=== PATIENT | female | born 1990 | race Caucasian/White ===

== ENCOUNTER 2021-08-31 16:15 | Inpatient (IN) | payer SELFPAY ==
[2021-08-30 18:02] VITALS: BP 125/81
[~2021-08-31] VITALS: Ht 170.2 cm; Wt 72.0 kg
[2021-08-31] MEDS ORDERED: ACETAMINOPHEN 325 MG TABLET. PO PRN (18:15)
[2021-08-31] MEDS: oxyCODONE/APAP 5/325 1 TAB TABLET PO PRN (18:37)
[2021-08-31] MEDS: MORPHINE SULFATE 2 MG/ML INJ. IVP PRN (18:38)
[2021-08-31] MEDS: VANCOMYCIN PER PHARMACY MC PRN (18:39)
--- NOTE | 2021-08-31 18:41 | NUR ---
Pharmacy Vancomycin Dosing Note S:Consulted to monitor and dose vancomycin started 08/31/21. O:KATHRYN ZAYAS is a 30 year old F with perineal, gluteal cellulitis Height: 5 feet, 7 inches Weight: 72.0 kg Dosing Weight: Actual Other Antibiotics: ROCEPHIN 1G IV Q24HRS LABS (08/31 @ [facility]): Last BUN: 12 Last Creatinine: 0.9 Creatinine Clearance: 105 mL/min Last WBC: 32.3 Last Procalcitonin: Tmax (past 24 hours): 98.7 Microbiology: A: Patient requires vancomycin for cellulitis, goal trough 10-20 mcg/ml. His SCr at [facility] was 0.9 with an eCrCl of 105 ml/min. Patient received vancomycin 1500 mg x 1 dose at [facility] today @ 1400. P: 1. Initiate Vancomycin 1000 mg IV q8h 2. Follow up Trough level on 09/01/21 at 1330 3. Pharmacy will continue to monitor, follow and adjust therapy as needed. [place] DALEY, [facility], 08/31/21 [id number]
[2021-08-31 19:00] VITALS: BP 116/69
[2021-08-31] MEDS: cefTRIAXone IV Push 1 GM VIAL. IVP SCH (19:34)
[2021-08-31] MEDS: VANCOMYCIN 1 GM in IV NORMAL SALINE 250ML 250 ML IV SCH ×2 (19:35→21:49)
--- NOTE | 2021-08-31 20:04 | HP ---
DATE OF SERVICE: 08/31/2021 ADMIT DATE: 08/31/2021 CHIEF COMPLAINT: Scrotal and buttock redness and pain. HISTORY OF PRESENT ILLNESS: The patient is a pleasant 30-year-old male who states he is on parole and is homeless. Basically presented to [facility] ER with a gluteal cellulitis with some weakness and pain. I discussed the case with ER physician. We have transferred the patient for IV antibiotic therapy in consultation with General Surgery. PAST MEDICAL HISTORY: 1. Drug abuse, although he states he has quit. 2. Tobacco abuse. ALLERGIES: None. FAMILY HISTORY: Hypertension. SOCIAL HISTORY: He is homeless. He is on parole, states he was incarcerated for drugs. He smokes, but no current drug use or drinking. MEDICATIONS: Reviewed. Please refer to the MRAD. REVIEW OF SYSTEMS: GENERAL: No history of weight change, weakness or fevers. SKIN: He complains of gluteal and scrotal pain and erythema. EYES: No blurred, double or loss of vision. NOSE AND THROAT: No history of nosebleeds, hoarseness or sore throat. HEART: No history of palpitations, chest pain or shortness of breath on exertion. LUNGS: Denies cough, hemoptysis, wheezing or shortness of breath. GASTROINTESTINAL: Denies changes in appetite, nausea, vomiting, diarrhea or constipation. GENITOURINARY: No history of frequency, urgency, hesitancy or nocturia. NEUROLOGIC: Denies history of numbness, tingling, tremor or weakness. PSYCHIATRIC: No history of panic, anxiety or depression. ENDOCRINE: No history of heat or cold intolerance, polyuria or polydipsia. EXTREMITIES: Denies muscle weakness, joint pain, pain on walking or stiffness. PHYSICAL EXAMINATION: VITALS: Within normal limits and are stable. GENERAL: No apparent distress. Alert and oriented. HEENT: Normal cephalic atraumatic, external auditory canals are patent EYES: Extraocular muscles are intact, pupils are equally round and reactive to light and accommodation MUSCULOSKELETAL: Well developed, well nourished, good range of motion ENDOCRINE: No thyromegaly was palpated LYMPHATICS: No cervical chain or axillary nodes were noted HEMATOPOIETIC: No bruising NECK: Supple, no JVD, no thyromegaly was noted. LUNGS: Clear to auscultation in all lung spear without rhonchi or wheezing. HEART: RRR, S1, S2 present. Peripheral pulses intact, no obvious murmurs were noted. ABDOMEN: Soft, nontender. Positive bowel sounds no organomegaly, normal bowel sounds. EXTREMITIES: Without any cyanosis, clubbing, or edema. Pedal pulses intact, Homans sign is negative. NEUROLOGIC: Normal speech, normal tone. A and O x 3, moves all extremities, no obvious focal deficits. PSYCHIATRIC: Normal affect, normal mood. Stable. SKIN: No ulcerations or rashes, good skin turgor, no jaundice. VASCULAR: Good capillary refill, neurovascular bundle appears to be intact. GENITOURINARY: He has scrotal erythema and he has some buttock erythema. ASSESSMENT AND PLAN: Buttock and gluteal cellulitis and scrotal cellulitis. The patient has been admitted. We will start IV antibiotics. Consult General Surgery to see if there is any abscess, we could drain. Home meds. Deep venous thrombosis prophylaxis. Full code. IV vancomycin, IV Rocephin, p.r.n. oxycodone, p.r.n. morphine for breakthrough pain. DARVIN DR: Tacho TID: [id number]
[2021-08-31] MEDS ORDERED: FLU VACC QUAD 21-22 (6MOS+) PF 0.5 ML SYRINGE. VAX IM ONE (21:00)
[2021-08-31] MEDS: LACTOBACILLUS RHAMNOSUS GG 1 CAPSULE. PO SCH (21:49)
[2021-08-31 23:00] VITALS: BP 103/54
[2021-09-01 03:00] VITALS: BP 105/68
[2021-09-01] MEDS: VANCOMYCIN 1 GM in IV NORMAL SALINE 250ML 250 ML IV SCH ×3 (05:20→21:50)
[2021-09-01 07:00] VITALS: BP 111/66
[2021-09-01] MEDS: oxyCODONE/APAP 5/325 1 TAB TABLET PO PRN ×4 (08:22→23:40)
[2021-09-01] MEDS: LACTOBACILLUS RHAMNOSUS GG 1 CAPSULE. PO SCH ×2 (08:23→21:07)
--- NOTE | 2021-09-01 10:33 | PDOC2 ---
CONSULT Date of Consult Date of Consult DATE: 09/01/21 TIME: 10:31 History of Present Illness Reason for Visit: 30 year old male presented to [facility] with pain and swelling in perineal and R gluteal region X 3-4 days. Denies trauma, no fever. Past Medical History Past Medical History denies Past Surgical History Past Surgical History denies Social History 1 pack per day ALCOHOL: rare Current Medications Current Medications Current Medications Acetaminophen (Tylenol) 650 mg PRN Q6HRS PRN PO MILD PAIN / TEMP > 100.3'F Last administered on 08/31/21at 18:37; Start 08/31/21 at 18:15 Ceftriaxone Sodium (Rocephin) 1 gm Q24H IVP Last administered on 08/31/21at 19:34; Start 08/31/21 at 21:00 Vancomycin HCl (Vanco Per Pharmacy) 1 each PRN DAILY PRN MC SEE COMMENTS Last administered on 08/31/21at 18:39; Start 09/01/21 at 08:00 Morphine Sulfate (Morphine Sulfate) 2 mg PRN Q2HR PRN IVP PAIN Last adminis tered on 08/31/21at 18:38; Start 08/31/21 at 18:15 Oxycodone/ Acetaminophen (Percocet 5/325) 1 tab PRN Q4HRS PRN PO PAIN Last ad ministered on 09/01/21at 08:22; Start 08/31/21 at 18:15 Influenza Virus Vaccine Quadrival (Flulaval Quad [id number] Syringe) 0.5 ml ONCE ONCE VAX IM ; Start 08/31/21 at 21:00; Stop 08/31/21 at 21:01; Status DC Vancomycin HCl 1 gm/Sodium Chloride 250 ml @ 250 mls/hr Q8H IV Last administered on 09/01/21at 05:20; Start 08/31/21 at 22:00 Vancomycin HCl (Vancomycin Trough Level) 1 each 1X ONCE MC ; Start 08/31/21 at 13:30; Stop 08/31/21 at 13:31; Status Cancel Lactobacillus Rhamnosus (Culturelle) 1 cap BID PO Last administered on 09/01/21at 08:23; Start 08/31/21 at 21:00 Vancomycin HCl (Vancomycin Trough Level) 1 each 1X ONCE MC ; Start 09/01/21 at 13:30; Stop 09/01/21 at 13:31 Allergies Allergies: Coded Allergies: No Known Drug Allergies (Unverified , 08/31/21) ROS General: No: Chills, Night Sweats, Fatigue, Malaise, Appetite, Other PSYCHOLOGICAL ROS: No: Anxiety, Behavioral Disorder, Concentration difficultie, Decreased libido, Depression, Disorientation, Hallucinations, Hostility, Irritablity, Memory difficulties, Mood Swings, Obsessive thoughts, Physical abuse, Sexual abuse, Sleep disturbances, Suicidal ideation, Other Eyes: No Blurry vision, No Decreased vision, No Double vision, No Dry eyes, No Excessive tearing, No Eye Pain, No Itchy Eyes, No Loss of vision, No Ph otophobia, No Scotomata, No Uses contacts, No Uses glasses, No Other ENDOCRINE: No: Breast Changes, Galactorrhea, Hair Pattern Changes, Hot Flashes, Malaise/lethargy, Mood Swings, Palpitations, Polydipsia/polyuria, Skin Changes, Temperature Intolerance, Unexpected Weight Changes, Other Breast: No New/Changing Breast Lumps, No Nipple changes, No Nipple discharge, No Other Cardiovascular: No Chest Pain, No Palpitations, No Orthopnea, No Paroxysmal Noc. Dyspnea, No Edema, No Lt Headedness, No Other Gastrointestinal: No Nausea, No Vomiting, No Abdominal Pain, No Diarrhea, No Constipation, No Melena, No Hematochezia, No Other Genitourinary: No Dysuria, No Frequency, No Incontinence, No Hematuria, No Retention, No Discharge, No Urgency, No Pain, No Flank Pain, No Other, No , No , No , No , No , No , No Musculoskeletal: No Gait Disturbance, No Joint Pain, No Joint Stiffness, No Joint Swelling, No Muscle Pain, No Muscular Weakness, No Pain In:, No Swelling In:, No Other Neurological: No Behavorial Changes, No Bowel/Bladder ControlChng, No Confusion, No Dizziness, No Gait Disturbance, No Headaches, No Impaired Coord/ balance, No Memory Loss, No Numbness/Tingling, No Seizures, No Speech Problems, No Tremors, No Visual Changes, No Weakness, No Other Skin: Yes Other (perineal swelling, pain) Physical Exam General: Alert, Oriented X3 HEENT: Atraumatic Lungs: Clear to auscultation Heart: Regular rate Abdomen: Soft, No tenderness Skin: Other (R perineal swelling, fluctuance, erythema) Neuro: Normal gait, Normal speech, Strength at 5/5 X4 ext Psych/Mental Status: Mental status NL MUSCULOSKELETAL: No swelling Vitals VITALS Vital Signs Date Time Temp Pulse Resp B/P (MAP) Pulse Ox O2 Delivery O2 Flow Rate FiO2 09/01/21 08:52 Room Air 09/01/21 07:00 98.4 86 18 111/66 (81) 97 98.4 Assessment/Plan Assessment/Plan 30 year old with R perineal/gluteal abscess, recommend I and D. Pt currently on regular diet. Will make NPO and schedule for AM. ELEUTERIO CHAIDEZ MD Sep 01, 2021 10:33
[2021-09-01 11:00] VITALS: BP 106/66
[2021-09-01] MEDS: MORPHINE SULFATE 2 MG/ML INJ. IVP PRN (11:59)
[2021-09-01 13:38] LABS: CREATININE 0.8 mg/dL (0.6-1.0); GFR 83.1
[2021-09-01 13:44] LABS: VANC TR 10.8 mcg/mL (10.0-20.0)
--- NOTE | 2021-09-01 14:13 | PDOC ---
GENERAL General: Patient examined chart reviewed today's hospital day 2 for this patient transferred from [facility] where he visited to the emergency depar tment there yesterday with right buttock cellulitis. He was transferred to [facility] for surgical attention. We appreciate general surgery care. Plan is for I&D of that buttock abscess in the morning. I have reviewed the [facility] record and there is no obvious predisposing etiology to this abscess. He does not have diabetes and is otherwise in good health. He has been living in a half-way for the last 6 months since he was released from assisted. We did not talk about why he was in assisted though per from the record it sounds like he had history of illicit drug use. One of the sisters from the assisted arrived to visit with him while we were evaluating. It sounds like his plan is to discharge back to the homeless half-way and they have been quite good to him. He has a clean cot and is able to shower there. If needed we can have social work assess him prior to discharge. Time spent today is 30 minutes with greater than 50% in counseling and coordination of care most of which in discussion with patient regarding care plan and progress. Problems: (1) Abscess of buttock, right (2) Homelessness VITAL SIGNS Vital Signs/I&O: Vital Signs Date Time Temp Pulse Resp B/P (MAP) Pulse Ox O2 Delivery O2 Flow Rate FiO2 09/01/21 12:29 Room Air 09/01/21 11:00 98.1 83 18 106/66 (79) 97 98.1 I & O 08/31/21 08/31/21 09/01/21 15:00 23:00 07:00 Intake Total 500 ml Balance 500 ml In general the patient is very pleasant alert and oriented x3 no acute distress HEENT exam is unremarkable for acute abnormality Neck is soft and supple no adenopathy or thyromegaly noted Chest is clear to auscultation Heart S1-S2 normal regular rate and rhythm no murmurs or gallops are noted Abdomen soft nontender nondistended no masses organomegaly noted Extremity exam is notable for right buttock abscess immediately adjacent to his perianal region no drainage noted surrounding erythema at the abscess ALLERGIES Allergies: Allergies Coded Allergies Type Severity Reaction Last Updated Verified No Known Drug Allergies 08/31/21 No MEDS Medications: Current Medications Medications (Trade) Dose Ordered Sig/Fabiana Start Time Stop Time Status Last Admin Dose Admin Acetaminophen (Tylenol) 650 mg PRN Q6HRS PRN 08/31/21 18:15 08/31/21 18:37 Ceftriaxone Sodium (Rocephin) 1 gm Q24H 08/31/21 21:00 08/31/21 19:34 Influenza Virus Vaccine Quadrival (Flulaval Quad [id number] Syringe) 0.5 ml ONCE ONCE 08/31/21 21:00 08/31/21 21:01 DC Lactobacillus Rhamnosus (Culturelle) 1 cap BID 08/31/21 21:00 09/01/21 08:23 Morphine Sulfate (Morphine Sulfate) 2 mg PRN Q2HR PRN 08/31/21 18:15 09/01/21 11:59 Oxycodone/ Acetaminophen (Percocet 5/325) 1 tab PRN Q4HRS PRN 08/31/21 18:15 09/01/21 11:59 Vancomycin HCl (Vanco Per Pharmacy) 1 each PRN DAILY PRN 09/01/21 08:00 08/31/21 18:39 Vancomycin HCl (Vancomycin Trough Level) 1 each 1X ONCE 09/01/21 13:30 09/01/21 13:31 DC Vancomycin HCl 1 gm/Sodium Chloride 250 ml @ 250 mls/hr Q8H 08/31/21 22:00 09/01/21 05:20 Current Medications Medications (Trade) Dose Ordered Sig/Fabiana Route PRN Reason Start Time Stop Time Status Last Admin Dose Admin Acetaminophen (Tylenol) 650 mg PRN Q6HRS PRN PO MILD PAIN / TEMP > 100.3'F 08/31/21 18:15 08/31/21 18:37 Ceftriaxone Sodium (Rocephin) 1 gm Q24H IVP 08/31/21 21:00 08/31/21 19:34 Vancomycin HCl (Vanco Per Pharmacy) 1 each PRN DAILY PRN MC SEE COMMENTS 09/01/21 08:00 08/31/21 18:39 Morphine Sulfate (Morphine Sulfate) 2 mg PRN Q2HR PRN IVP PAIN 08/31/21 18:15 09/01/21 11:59 Oxycodone/ Acetaminophen (Percocet 5/325) 1 tab PRN Q4HRS PRN PO PAIN 08/31/21 18:15 09/01/21 11:59 Vancomycin HCl 1 gm/Sodium Chloride 250 ml @ 250 mls/hr Q8H IV 08/31/21 22:00 09/01/21 05:20 Lactobacillus Rhamnosus (Culturelle) 1 cap BID PO 08/31/21 21:00 09/01/21 08:23 LAB Lab: Laboratory Tests Test 09/01/21 13:00 Creatinine 0.8 mg/dL (0.6-1.0) Estimated GFR (Cockcroft-Gault) 83.1 Vancomycin Level Trough 10.8 mcg/mL (10.0-20.0) Vancomycin Last Dose Date 09/01/21 Vancomycin Last Dose Time 0600 Laboratory Tests 09/01/21 13:00 ASSESSMENT & PLAN A&P Plan as noted above This note was created using [employer] and may have omissions and/or errors due to the nature of real-time voice guitar technician. Justifications for Admission Other Justification ARACELIS BLEDSOE MD Sep 01, 2021 14:13
[2021-09-01] MEDS: VANCOMYCIN PER PHARMACY MC PRN (14:57)
--- NOTE | 2021-09-01 14:57 | NUR ---
Pharmacy Vancomycin Dosing Note S:Consulted to monitor and dose vancomycin started 08/31/21. O:KATHRYN ZAYAS is a 30 year old F with Cellulitis perineal, gluteal cellulitis . Height: 5 feet, 7 inches Weight: 72.0 kg [place] Body Weight: 66.10 Adjusted Body Weight: 68.46 Dosing Weight: Actual Other Antibiotics: ROCEPHIN 1G IV Q24HRS LABS: Last BUN: 12 Last Creatinine: 0.8 Creatinine Clearance: >100 mL/min Last WBC: 32.3 Last Procalcitonin: Tmax (past 24 hours): 98.4 Microbiology: I/O: 500/- Drug Levels: Last Trough level: 10.8 on 09/01/21 at 1300 Last dose given 09/01/21 at 0520 Vancomycin Dosing: Loading Dose: 1500 mg x1 Dosing Weight: Actual Target Trough: 10-20 A: Based on: Therapeutic trough P: 1. Continue Vancomycin 1000 mg IV q8h 2. Follow up Trough level as needed. 3. Pharmacy will continue to monitor, follow and adjust therapy as needed. MONTRELL LAINEZ Drew, 09/01/21 [id number]
[2021-09-01 15:00] VITALS: BP 114/51
[2021-09-01 19:54] VITALS: BP 115/60
[2021-09-01] MEDS: cefTRIAXone IV Push 1 GM VIAL. IVP SCH (21:07)
[2021-09-01 23:27] VITALS: BP 111/73
[2021-09-02] VITALS (13 sets, daily range): BP systolic 97–125; BP diastolic 45–72
[2021-09-02] MEDS: VANCOMYCIN 1 GM in IV NORMAL SALINE 250ML 250 ML IV SCH ×3 (05:57→21:56)
[2021-09-02] MEDS ORDERED: BUPIVACAINE-EPI 0.5% 30 ML VIAL KIT. ONE ×2 (06:54→06:55)
--- NOTE | 2021-09-02 07:30 | NUR ---
patient taken to OR
[2021-09-02 07:43] LABS: BASO # 0.1 x10^3/uL (0.0-0.2); BASO % 0 % (0-3); EOS # 0.5 x10^3/uL (0.0-0.7); EOS % 3 % (0-3); HEMATOCRIT 35.5 % (36.0-47.0); HEMOGLOBIN 11.4 g/dL (12.0-15.5); LYMPH # 2.3 x10^3/uL (1.0-4.8); LYMPH % 11 % (24-48); MEAN CORPUSCULAR HEMOGLOBIN 27 pg (25-35); MEAN CORPUSCULAR HGB CONC 32 g/dL (31-37); MEAN CORPUSCULAR VOLUME 85 fL (79-100); MONO # 1.9 x10^3/uL (0.0-1.1); MONO % 9 % (0-9); NEUT # 15.7 x10^3/uL (1.8-7.7); NEUT % 77 % (31-73); PLATELET COUNT 434 x10^3/uL (140-400); RED BLOOD COUNT 4.19 x10^6/uL (3.50-5.40); RED CELL DISTRIBUTION WIDTH 14.9 % (11.5-14.5); WHITE BLOOD COUNT 20.5 x10^3/uL (4.0-11.0)
[2021-09-02] MEDS ORDERED: LIDOCAINE 2% PF 5 ML VIAL. ONE (07:52)
[2021-09-02] MEDS ORDERED: PROPOFOL 10 MG/ML (20ML) VIAL. IV ONE (07:52)
[2021-09-02] MEDS ORDERED: ONDANSETRON PF 4 MG/2 ML VIAL. ONE (07:52)
[2021-09-02] MEDS ORDERED: DEXAMETHASONE SOD PHOS 4 MG/ML VIAL ONE ×2 (07:52)
[2021-09-02] MEDS ORDERED: fentaNYL PF VIAL 100 MCG/2 ML VIAL ONE ×2 (07:52→09:09)
[2021-09-02 07:54] LABS: ALBUMIN 2.4 g/dL (3.4-5.0); ALBUMIN/GLOBULIN RATIO 0.5 (1.0-1.7); CALCIUM 8.4 mg/dL (8.5-10.1); CREATININE 0.9 mg/dL (0.6-1.0); GFR 72.6; POTASSIUM 4.7 mmol/L (3.5-5.1); TOTAL BILIRUBIN 0.3 mg/dL (0.2-1.0); TOTAL PROTEIN 6.9 g/dL (6.4-8.2)
[2021-09-02] MEDS ORDERED: IV NORMAL SALINE 1000ML BAG 1,000 ML IV ONE (08:00)
[2021-09-02] MEDS ORDERED: PROCHLORPERAZINE 10 MG/2 ML VIAL. IVP PRN (08:30)
[2021-09-02] MEDS ORDERED: MORPHINE SULFATE 2 MG/ML INJ. IVP PRN (08:30)
[2021-09-02] MEDS ORDERED: SEVOFLURANE 31 TO 60 MINUTES. IH ONE (08:30)
[2021-09-02] MEDS ORDERED: fentaNYL PF VIAL 100 MCG/2 ML VIAL IVP PRN (08:30)
[2021-09-02] MEDS ORDERED: KETOROLAC 30 MG/ML VIAL. ONE (08:30)
[2021-09-02] MEDS ORDERED: IV RINGERS,LACTATED 1000ML 1,000 ML IV SCH (08:30)
[2021-09-02] MEDS ORDERED: HYDROmorphone 2 MG/ML INJ. IVP PRN (08:30)
--- NOTE | 2021-09-02 08:56 | PDOC4 ---
Operative Note Operative Note Operative Note: Preoperative Diagnosis: Right perineal abscess Postoperative Diagnosis: Same Procedure: Incision and drainage of right perineal abscess Surgeon: Nick Government Property Inspector: None Anesthesia: General EBL: 20 mL Specimen: Cultures microbiology Drains: None Complications: None Indication: The patient is a 30-year-old male who presented with a sizable right perineal abscess. He will require incision and drainage. The risks of surgery were discussed which include bleeding, infection, scar tissue, wound healing problems, recurrence, pain, anesthetic risk, potential need for additional surgery procedure. He understands and would like to proceed. Description: The patient was taken the operating room and placed supine on the operating table. General anesthesia was performed. [facility] The perineal skin was prepped with Betadine and draped in a standard surgical manner. With a scalpel an incision was made overlying the fluctuant area. There was return of a large amount of purulent fluid. Cultures were obtained and sent to microbiology. The entire wound cavity was then suctioned. The incision was extended some to facilitate drainage. The wound cavity was then digitally probed and any loculations were freed up. The cavity was then irrigated with sterile saline which was suctioned. Hemostasis was achieved with cautery. The wound was then packed with sterile gauze and a dressing was applied. The patient tolerated the procedure well and was sent to the recovery room in stable condition. At the end of the case all counts were correct. ELEUTERIO CHAIDEZ MD Sep 02, 2021 08:55
[2021-09-02] MEDS ORDERED: oxyCODONE/APAP 5/325 1 TAB TABLET PO PRN (09:00)
[2021-09-02] MEDS: LACTOBACILLUS RHAMNOSUS GG 1 CAPSULE. PO SCH ×2 (09:00→20:04)
[2021-09-02 09:05] LABS: % BANDS 8 % (0-9); % EOS 3 % (0-5); % LYMPHS 16 % (24-48); % MONOS 7 % (0-10); % SEGS 66 % (35-66)
[2021-09-02 09:06] LABS: ANISOCYTOSIS PRESENT; PLT ESTIMATE INCREASED (ADEQUATE)
[2021-09-02] MEDS: fentaNYL PF VIAL 100 MCG/2 ML VIAL IVP PRN ×2 (09:14→09:29)
[2021-09-02] MEDS: oxyCODONE/APAP 5/325 1 TAB TABLET PO PRN ×2 (11:20→17:02)
--- NOTE | 2021-09-02 16:44 | PDOC ---
GENERAL General: Patient examined chart reviewed. He had his surgical I&D this morning and went well, appreciate general surgery support. Cultures were taken. We will consult wound nurse and social work to help with his discharge given his homeless status. He is committed to going back to the half-way where he has been living for the last several months hoping to get back on his feet as soon as his parole is ended. We will reassess for discharge tomorrow. Continue current management otherwise Problems: (1) Abscess of buttock, right (2) Homelessness VITAL SIGNS Vital Signs/I&O: Vital Signs Date Time Temp Pulse Resp B/P (MAP) Pulse Ox O2 Delivery O2 Flow Rate FiO2 09/02/21 15:00 97.7 67 18 111/56 (74) 97 Room Air 97.7 09/02/21 08:50 10 I & O 09/01/21 09/01/21 09/02/21 15:00 23:00 07:00 Intake Total 1250 ml 500 ml Balance 1250 ml 500 ml In general patient is pleasant alert and oriented x3 no acute distress HEENT exam is unremarkable for acute abnormality Chest is clear to auscultation Heart S1-S2 normal regular rate and rhythm no murmurs or gallops are noted Abdomen soft nontender nondistended no masses or organomegaly noted Extremity exam is unremarkable for acute abnormality. Buttock dressings were not assessed ALLERGIES Allergies: Allergies Coded Allergies Type Severity Reaction Last Updated Verified No Known Drug Allergies 09/02/21 No MEDS Medications: Current Medications Medications (Trade) Dose Ordered Sig/Fabiana Start Time Stop Time Status Last Admin Dose Admin Acetaminophen (Tylenol) 650 mg PRN Q6HRS PRN 08/31/21 18:15 08/31/21 18:37 Ceftriaxone Sodium (Rocephin) 1 gm Q24H 08/31/21 21:00 09/01/21 21:07 Fentanyl Citrate (Fentanyl 2ml Vial) 50 mcg PRN Q5MIN PRN 09/02/21 08:30 09/03/21 08:29 09/02/21 09:29 Hydromorphone HCl (Dilaudid) 0.5 mg PRN Q10MIN PRN 09/02/21 08:30 09/03/21 08:29 Influenza Virus Vaccine Quadrival (Flulaval Quad Syringe) 0.5 ml ONCE ONCE 08/31/21 21:00 08/31/21 21:01 DC Lactobacillus Rhamnosus (Culturelle) 1 cap BID 08/31/21 21:00 09/01/21 21:07 Morphine Sulfate (Morphine Sulfate) 1 mg PRN Q10MIN PRN 09/02/21 08:30 09/03/21 08:29 Oxycodone/ Acetaminophen (Percocet 5/325) 2 tab PRN Q4HRS PRN 09/02/21 09:21 09/02/21 11:20 Prochlorperazine Edisylate (Compazine) 5 mg PACU PRN PRN 09/02/21 08:30 09/03/21 08:29 Ringer's Solution 1,000 ml @ 30 mls/hr Q24H 09/02/21 08:30 09/02/21 20:29 09/02/21 09:28 Sodium Chloride 1,000 ml @ 0 mls/hr 1X ONCE 09/02/21 08:00 09/02/21 09:32 DC 09/02/21 08:00 Vancomycin HCl (Vanco Per Pharmacy) 1 each PRN DAILY PRN 09/01/21 08:00 09/01/21 14:57 Vancomycin HCl (Vancomycin Trough Level) 1 each 1X ONCE 09/01/21 13:30 09/01/21 13:31 DC Vancomycin HCl 1 gm/Sodium Chloride 250 ml @ 250 mls/hr Q8H 08/31/21 22:00 09/02/21 13:43 Current Medications Medications (Trade) Dose Ordered Sig/Fabiana Route PRN Reason Start Time Stop Time Status Last Admin Dose Admin Fentanyl Citrate (Fentanyl 2ml Vial) 50 mcg PRN Q5MIN PRN IVP MODERATE PAIN 4-6 09/02/21 08:30 09/03/21 08:29 09/02/21 09:29 Ringer's Solution 1,000 ml @ 30 mls/hr Q24H IV 09/02/21 08:30 09/02/21 20:29 09/02/21 09:28 Oxycodone/ Acetaminophen (Percocet 5/325) 2 tab PRN Q4HRS PRN PO PAIN 09/02/21 09:21 09/02/21 11:20 Sodium Chloride 1,000 ml @ 0 mls/hr 1X ONCE IV 09/02/21 08:00 09/02/21 09:32 DC 09/02/21 08:00 LAB Lab: Laboratory Tests Test 09/02/21 07:05 White Blood Count 20.5 x10^3/uL (4.0-11.0) H Red Blood Count 4.19 x10^6/uL (3.50-5.40) Hemoglobin 11.4 g/dL (12.0-15.5) L Hematocrit 35.5 % (36.0-47.0) L Mean Corpuscular Volume 85 fL (79-100) Mean Corpuscular Hemoglobin 27 pg (25-35) Mean Corpuscular Hemoglobin Concent 32 g/dL (31-37) Red Cell Distribution Width 14.9 % (11.5-14.5) H Platelet Count 434 x10^3/uL (140-400) H Neutrophils (%) (Auto) 77 % (31-73) H Lymphocytes (%) (Auto) 11 % (24-48) L Monocytes (%) (Auto) 9 % (0-9) Eosinophils (%) (Auto) 3 % (0-3) Basophils (%) (Auto) 0 % (0-3) Neutrophils # (Auto) 15.7 x10^3/uL (1.8-7.7) H Lymphocytes # (Auto) 2.3 x10^3/uL (1.0-4.8) Monocytes # (Auto) 1.9 x10^3/uL (0.0-1.1) H Eosinophils # (Auto) 0.5 x10^3/uL (0.0-0.7) Basophils # (Auto) 0.1 x10^3/uL (0.0-0.2) Segmented Neutrophils % 66 % (35-66) Band Neutrophils % 8 % (0-9) Lymphocytes % 16 % (24-48) L Monocytes % 7 % (0-10) Eosinophils % 3 % (0-5) Platelet Estimate Increased (ADEQUATE) Anisocytosis Present Sodium Level 143 mmol/L (136-145) Potassium Level 4.7 mmol/L (3.5-5.1) Chloride Level 105 mmol/L (98-107) Carbon Dioxide Level 28 mmol/L (21-32) Anion Gap 10 (6-14) Blood Urea Nitrogen 11 mg/dL (7-20) Creatinine 0.9 mg/dL (0.6-1.0) Estimated GFR (Cockcroft-Gault) 72.6 BUN/Creatinine Ratio 12 (6-20) Glucose Level 92 mg/dL (70-99) Calcium Level 8.4 mg/dL (8.5-10.1) L Total Bilirubin 0.3 mg/dL (0.2-1.0) Aspartate Amino Transferase (AST) 23 U/L (15-37) Alanine Aminotransferase (ALT) 37 U/L (14-59) Alkaline Phosphatase 130 U/L (46-116) H Total Protein 6.9 g/dL (6.4-8.2) Albumin 2.4 g/dL (3.4-5.0) L Albumin/Globulin Ratio 0.5 (1.0-1.7) L Laboratory Tests 09/02/21 07:05 Laboratory Tests 09/02/21 07:05 ASSESSMENT & PLAN A&P Plan as noted above This note was created using [employer] and may have omissions and/or errors due to the nature of real-time voice naturopathic oncology provider. Justifications for Admission Other Justification ARACEILS BLEDSOE MD Sep 02, 2021 16:44
[2021-09-02] MEDS: cefTRIAXone IV Push 1 GM VIAL. IVP SCH (20:00)
[2021-09-03 03:00] VITALS: BP 98/59
[2021-09-03] MEDS: VANCOMYCIN 1 GM in IV NORMAL SALINE 250ML 250 ML IV SCH ×3 (05:30→22:28)
[2021-09-03 06:46] LABS: BASO # 0.1 x10^3/uL (0.0-0.2); BASO % 0 % (0-3); EOS # 0.4 x10^3/uL (0.0-0.7); EOS % 2 % (0-3); HEMOGLOBIN 10.8 g/dL (12.0-15.5); LYMPH % 20 % (24-48); MEAN CORPUSCULAR HEMOGLOBIN 26 pg (25-35); MEAN CORPUSCULAR HGB CONC 31 g/dL (31-37); MEAN CORPUSCULAR VOLUME 84 fL (79-100); MONO # 1.4 x10^3/uL (0.0-1.1); MONO % 9 % (0-9); NEUT # 10.5 x10^3/uL (1.8-7.7); NEUT % 69 % (31-73); PLATELET COUNT 482 x10^3/uL (140-400); RED BLOOD COUNT 4.16 x10^6/uL (3.50-5.40); RED CELL DISTRIBUTION WIDTH 14.7 % (11.5-14.5); WHITE BLOOD COUNT 15.4 x10^3/uL (4.0-11.0)
[2021-09-03 07:00] VITALS: BP 118/68
[2021-09-03 07:03] LABS: ALBUMIN 2.1 g/dL (3.4-5.0); ALBUMIN/GLOBULIN RATIO 0.4 (1.0-1.7); CALCIUM 8.2 mg/dL (8.5-10.1); CREATININE 0.7 mg/dL (0.6-1.0); TOTAL BILIRUBIN 0.1 mg/dL (0.2-1.0); TOTAL PROTEIN 6.8 g/dL (6.4-8.2)
[2021-09-03] MEDS: LACTOBACILLUS RHAMNOSUS GG 1 CAPSULE. PO SCH ×2 (08:04→21:12)
[2021-09-03] MEDS: oxyCODONE/APAP 5/325 1 TAB TABLET PO PRN ×2 (08:05→17:44)
[2021-09-03] MEDS: VANCOMYCIN PER PHARMACY MC PRN (09:41)
[2021-09-03] MEDS ORDERED: AMOX1TAB61 PO (10:29)
[2021-09-03] MEDS ORDERED: OXYC1TAB15 PO (10:29)
--- NOTE | 2021-09-03 10:30 | SNU/HH DC ---
DISCHARGE WITH HOME HEALTH DISCHARGE INFORMATION: Condition on Discharge: Stable CODE STATUS: Code Status: Full HOME HEALTH: Face to Face: I certify this patient is under my care and that I, or a nurse practitioner or physician's assistant laboratory director working with me, had a face to face encounter that meets the physician face to face encounter requirements with this patient on []. Medical Complications: Other (Gluteal abscess) Fdc For: Assess & Educate Safety RN For Eval/Treatment: Yes Pt Meets Homebound Status: Unsteady balance w/ amb, POST DISCHARGE ORDERS: DIET AFTER DISCHARGE: Regular CERTIFICATION STATEMENT: Certification Statement: Certification Statement: Based on the above finding, I certify that this patient is confined to the home and needs intermittent alf care, physical therapy and/or speech therapy, or continues to need occupational therapy.~ This patient is under my care, and I have initiated the establishment of the plan of care.~ This patient will be followed by myself or a community physician who will periodically review the plan of care. Home Meds Active Scripts Amoxicillin/Potassium Clav (AUGMENTIN 875-125 TABLET) 1 Each Tablet, 1 TAB PO BID for . for 7 Days, #14 TAB 0 Refills Prov:CASTLE,NIAL K III DO 09/03/21 Oxycodone/Apap 5-325 (PERCOCET 5-325 MG TABLET ) 1 Each Tablet, 1 TAB PO PRN Q4HRS PRN for MODERATE PAIN for 7 Days, #14 TAB Prov:CASTLE,NIAL K III DO 09/03/21 CASTLE,NIAL K III DO Sep 03, 2021 10:30
[2021-09-03 10:52] VITALS: BP 90/48
--- NOTE | 2021-09-03 11:27 | PDOC ---
[employer] PROGRESS NOTE Date of Service DOS: DATE: 09/03/21 TIME: 11:27 Chief Complaint Chief Complaint right perineal abscess, homelessness History of Present Illness History of Present Illness 09/03/21 Patient seen and examined Chart reviewed Discussed with RN Dressing in place at surgical site. Post op day one following surgical incision and drainage. The patient is a pleasant 30-year-old male who states he is on parole and is homeless. Basically presented to [facility] ER with a gluteal cellulitis with some weakness and pain. Patient was transferred the patient for IV antibiotic therapy in consultation with General Surgery. PAST MEDICAL HISTORY: 1. Drug abuse, although he states he has quit. 2. Tobacco abuse. Vitals/I&O Vitals/I&O: Vital Signs Date Time Temp Pulse Resp B/P (MAP) Pulse Ox O2 Delivery O2 Flow Rate FiO2 09/03/21 10:52 98.0 76 18 90/48 (62) 97 Room Air 98.0 09/02/21 08:50 10 I & O 09/02/21 09/02/21 09/03/21 15:00 23:00 07:00 Intake Total 1120 ml Output Total 0 ml Balance 1120 ml Physical Exam General: Alert, Oriented X3 Heart: Regular rate Abdomen: Soft, No tenderness Skin: Other (Dressing in place at surgical site) Labs Labs: Laboratory Tests Test 09/03/21 05:50 White Blood Count 15.4 x10^3/uL (4.0-11.0) Red Blood Count 4.16 x10^6/uL (3.50-5.40) Hemoglobin 10.8 g/dL (12.0-15.5) Hematocrit 35.0 % (36.0-47.0) Mean Corpuscular Volume 84 fL (79-100) Mean Corpuscular Hemoglobin 26 pg (25-35) Mean Corpuscular Hemoglobin Concent 31 g/dL (31-37) Red Cell Distribution Width 14.7 % (11.5-14.5) Platelet Count 482 x10^3/uL (140-400) Neutrophils (%) (Auto) 69 % (31-73) Lymphocytes (%) (Auto) 20 % (24-48) Monocytes (%) (Auto) 9 % (0-9) Eosinophils (%) (Auto) 2 % (0-3) Basophils (%) (Auto) 0 % (0-3) Neutrophils # (Auto) 10.5 x10^3/uL (1.8-7.7) Lymphocytes # (Auto) 3.0 x10^3/uL (1.0-4.8) Monocytes # (Auto) 1.4 x10^3/uL (0.0-1.1) Eosinophils # (Auto) 0.4 x10^3/uL (0.0-0.7) Basophils # (Auto) 0.1 x10^3/uL (0.0-0.2) Sodium Level 143 mmol/L (136-145) Potassium Level 4.0 mmol/L (3.5-5.1) Chloride Level 108 mmol/L (98-107) Carbon Dioxide Level 26 mmol/L (21-32) Anion Gap 9 (6-14) Blood Urea Nitrogen 12 mg/dL (7-20) Creatinine 0.7 mg/dL (0.6-1.0) Estimated GFR (Cockcroft-Gault) 97.0 BUN/Creatinine Ratio 17 (6-20) Glucose Level 92 mg/dL (70-99) Calcium Level 8.2 mg/dL (8.5-10.1) Total Bilirubin 0.1 mg/dL (0.2-1.0) Aspartate Amino Transf (AST/SGOT) 14 U/L (15-37) Alanine Aminotransferase (ALT/SGPT) 30 U/L (14-59) Alkaline Phosphatase 122 U/L (46-116) Total Protein 6.8 g/dL (6.4-8.2) Albumin 2.1 g/dL (3.4-5.0) Albumin/Globulin Ratio 0.4 (1.0-1.7) Assessment and Plan Assessmemt and Plan ASSESSMENT: -right perineal abscess -homelessness PLAN -Post op day one s/p surgical incision and drainage perianal abscess right -Continue wound care -Continue antibiotics per ID -Trend labs -PRN pain medication -PT/OT -FULL code Comment Review of Relevant I have reviewed the following items pricila (where applicable) has been applied. Justifications for Admission Other Justification KENAN STEEN III DO Sep 03, 2021 11:27
--- NOTE | 2021-09-03 11:34 | NUR ---
SW following. Discussed with RN, pt from a homeless [facility], room air, regular diet. Discharge order for home with self care. Med Assist following for self pay status.
[2021-09-03 15:00] VITALS: BP 114/61
--- NOTE | 2021-09-03 16:47 | NUR ---
Wound/Ostomy Care Wound Type/Assessment: Wound care consult for right buttock abscess s/p I&D by Dr. Romero on 09/02/21. Surgical packing removed, wound cleansed, measured and pictured. Surrounding area continues to have some induration, undermining noted when measuring wound as well. Dressing change education done with pt using a mirror so pt could visualize wound, wound repacked with 1/2 iodoform packing, abd and mesh underwear used. Pt would benefit from more dressing change education, POC communicated with tax staff accountant. Treatment Recommendations/Plan: Remove old packing, cleanse wound with wound wash and pat dry. Pack wound with 1/2 iodoform packing using cotton tip applicator, forceps or cleaned gloved finger, cover with abd pad and hold with mesh underwear or tape. Change every other day or daily if saturated or if packing falls out. Education provided: pt educated on dressing changes, keeping pressure off wound for healing Offloading surface/device: pillows to offload Recommended Referrals/Tests: pt to follow up with general surgeon Discharge Recommendations for dressings: same as above, pt left turned to his left, call light within reach.
--- NOTE | 2021-09-03 17:07 | DS ---
DATE OF DISCHARGE: 09/03/2021 ADMITTING DIAGNOSIS: Gluteal abscess. DISCHARGE DIAGNOSES: Postoperative incision and drainage of gluteal abscess, history of drug abuse, and tobacco abuse. HOSPITAL COURSE: The patient is a pleasant middle-aged male who presented with a gluteal abscess. We started IV antibiotics and consulted General Surgery. He was taken for incision and drainage. Today, I saw and examined him. He is at his baseline. We plan to discharge on p.o. Augmentin and some Lortab. DISPOSITION: Home. ACTIVITY: As tolerated. DIET: Low sodium. MEDICATIONS: Please see the MRAD. P.r.n. oxycodone 5/325 mg 1 q.4 hours p.r.n. pain. I gave him a prescription for 14 and Augmentin 875 p.o. b.i.d. for 7 more days. Total time spent 32 minutes. MERLYN/DORI DR: MERLYN/james TID: [id number]
[2021-09-03 19:00] VITALS: BP 119/64
[2021-09-03] MEDS: cefTRIAXone IV Push 1 GM VIAL. IVP SCH (21:12)
[2021-09-03 23:00] VITALS: BP 110/72
[2021-09-04 03:03] VITALS: BP 102/65
[2021-09-04 05:00] LABS: BASO # 0.1 x10^3/uL (0.0-0.2); BASO % 1 % (0-3); EOS # 0.5 x10^3/uL (0.0-0.7); EOS % 5 % (0-3); HEMATOCRIT 35.1 % (36.0-47.0); HEMOGLOBIN 11.6 g/dL (12.0-15.5); LYMPH # 3.4 x10^3/uL (1.0-4.8); LYMPH % 33 % (24-48); MEAN CORPUSCULAR HEMOGLOBIN 28 pg (25-35); MEAN CORPUSCULAR HGB CONC 33 g/dL (31-37); MEAN CORPUSCULAR VOLUME 84 fL (79-100); MONO # 1.1 x10^3/uL (0.0-1.1); MONO % 10 % (0-9); NEUT # 5.3 x10^3/uL (1.8-7.7); NEUT % 51 % (31-73); PLATELET COUNT 499 x10^3/uL (140-400); RED BLOOD COUNT 4.19 x10^6/uL (3.50-5.40); RED CELL DISTRIBUTION WIDTH 14.4 % (11.5-14.5); WHITE BLOOD COUNT 10.3 x10^3/uL (4.0-11.0)
[2021-09-04 05:27] LABS: CALCIUM 8.4 mg/dL (8.5-10.1); GFR 64.3; POTASSIUM 4.4 mmol/L (3.5-5.1)
[2021-09-04] MEDS: VANCOMYCIN 1 GM in IV NORMAL SALINE 250ML 250 ML IV SCH ×2 (06:07→12:47)
[2021-09-04 07:27] VITALS: BP 109/62
--- NOTE | 2021-09-04 08:38 | PDOC ---
SURGICAL PROGRESS NOTE DATE: 09/04/21 TIME: 08:37 Subjective having breakfast pain at times, although improved needs dc planning Vital Signs Vital Signs Date Time Temp Pulse Resp B/P (MAP) Pulse Ox O2 Delivery O2 Flow Rate FiO2 09/04/21 07:27 98.2 66 20 109/62 (78) 98 Room Air 98.2 I&O Intake and Output 09/04/21 07:00 Intake Total 180 ml Balance 180 ml Intake Oral 180 ml # Voids 4 # Bowel Movements 1 General: Alert, Cooperative Abdomen: Soft Labs Laboratory Tests Test 09/03/21 05:50 09/04/21 03:40 White Blood Count 15.4 x10^3/uL (4.0-11.0) 10.3 x10^3/uL (4.0-11.0) Red Blood Count 4.16 x10^6/uL (3.50-5.40) 4.19 x10^6/uL (3.50-5.40) Hemoglobin 10.8 g/dL (12.0-15.5) 11.6 g/dL (12.0-15.5) Hematocrit 35.0 % (36.0-47.0) 35.1 % (36.0-47.0) Mean Corpuscular Volume 84 fL (79-100) 84 fL (79-100) Mean Corpuscular Hemoglobin 26 pg (25-35) 28 pg (25-35) Mean Corpuscular Hemoglobin Concent 31 g/dL (31-37) 33 g/dL (31-37) Red Cell Distribution Width 14.7 % (11.5-14.5) 14.4 % (11.5-14.5) Platelet Count 482 x10^3/uL (140-400) 499 x10^3/uL (140-400) Neutrophils (%) (Auto) 69 % (31-73) 51 % (31-73) Lymphocytes (%) (Auto) 20 % (24-48) 33 % (24-48) Monocytes (%) (Auto) 9 % (0-9) 10 % (0-9) Eosinophils (%) (Auto) 2 % (0-3) 5 % (0-3) Basophils (%) (Auto) 0 % (0-3) 1 % (0-3) Neutrophils # (Auto) 10.5 x10^3/uL (1.8-7.7) 5.3 x10^3/uL (1.8-7.7) Lymphocytes # (Auto) 3.0 x10^3/uL (1.0-4.8) 3.4 x10^3/uL (1.0-4.8) Monocytes # (Auto) 1.4 x10^3/uL (0.0-1.1) 1.1 x10^3/uL (0.0-1.1) Eosinophils # (Auto) 0.4 x10^3/uL (0.0-0.7) 0.5 x10^3/uL (0.0-0.7) Basophils # (Auto) 0.1 x10^3/uL (0.0-0.2) 0.1 x10^3/uL (0.0-0.2) Sodium Level 143 mmol/L (136-145) 138 mmol/L (136-145) Potassium Level 4.0 mmol/L (3.5-5.1) 4.4 mmol/L (3.5-5.1) Chloride Level 108 mmol/L (98-107) 105 mmol/L (98-107) Carbon Dioxide Level 26 mmol/L (21-32) 29 mmol/L (21-32) Anion Gap 9 (6-14) 4 (6-14) Blood Urea Nitrogen 12 mg/dL (7-20) 14 mg/dL (7-20) Creatinine 0.7 mg/dL (0.6-1.0) 1.0 mg/dL (0.6-1.0) Estimated GFR (Cockcroft-Gault) 97.0 64.3 BUN/Creatinine Ratio 17 (6-20) Glucose Level 92 mg/dL (70-99) 80 mg/dL (70-99) Calcium Level 8.2 mg/dL (8.5-10.1) 8.4 mg/dL (8.5-10.1) Total Bilirubin 0.1 mg/dL (0.2-1.0) Aspartate Amino Transf (AST/SGOT) 14 U/L (15-37) Alanine Aminotransferase (ALT/SGPT) 30 U/L (14-59) Alkaline Phosphatase 122 U/L (46-116) Total Protein 6.8 g/dL (6.4-8.2) Albumin 2.1 g/dL (3.4-5.0) Albumin/Globulin Ratio 0.4 (1.0-1.7) Laboratory Tests Test 09/04/21 03:40 White Blood Count 10.3 x10^3/uL (4.0-11.0) Red Blood Count 4.19 x10^6/uL (3.50-5.40) Hemoglobin 11.6 g/dL (12.0-15.5) Hematocrit 35.1 % (36.0-47.0) Mean Corpuscular Volume 84 fL (79-100) Mean Corpuscular Hemoglobin 28 pg (25-35) Mean Corpuscular Hemoglobin Concent 33 g/dL (31-37) Red Cell Distribution Width 14.4 % (11.5-14.5) Platelet Count 499 x10^3/uL (140-400) Neutrophils (%) (Auto) 51 % (31-73) Lymphocytes (%) (Auto) 33 % (24-48) Monocytes (%) (Auto) 10 % (0-9) Eosinophils (%) (Auto) 5 % (0-3) Basophils (%) (Auto) 1 % (0-3) Neutrophils # (Auto) 5.3 x10^3/uL (1.8-7.7) Lymphocytes # (Auto) 3.4 x10^3/uL (1.0-4.8) Monocytes # (Auto) 1.1 x10^3/uL (0.0-1.1) Eosinophils # (Auto) 0.5 x10^3/uL (0.0-0.7) Basophils # (Auto) 0.1 x10^3/uL (0.0-0.2) Sodium Level 138 mmol/L (136-145) Potassium Level 4.4 mmol/L (3.5-5.1) Chloride Level 105 mmol/L (98-107) Carbon Dioxide Level 29 mmol/L (21-32) Anion Gap 4 (6-14) Blood Urea Nitrogen 14 mg/dL (7-20) Creatinine 1.0 mg/dL (0.6-1.0) Estimated GFR (Cockcroft-Gault) 64.3 Glucose Level 80 mg/dL (70-99) Calcium Level 8.4 mg/dL (8.5-10.1) Problem List d/w nurse, not able to complete own wound care due to location, needs assistance, supplies, etc dc planning, ok to dc when arrangements made Justicifation of Admission Dx: Justifications for Admission: Justification of Admission Dx: Yes Comments: DEISI Fairbanks APRN Sep 04, 2021 08:38
[2021-09-04] MEDS: LACTOBACILLUS RHAMNOSUS GG 1 CAPSULE. PO SCH (09:07)
[2021-09-04] MEDS: oxyCODONE/APAP 5/325 1 TAB TABLET PO PRN (09:08)
[2021-09-04] MEDS: VANCOMYCIN PER PHARMACY MC PRN (09:19)
--- NOTE | 2021-09-04 10:22 | NUR ---
SW following. Discussed with RN, discharge order cancelled yesterday due to pt not being able to complete wound care. Wound care likely to provide education again today, supplies likely to be provided. Discharge order for home with self care again today. Pt is a high risk readmission.
--- NOTE | 2021-09-04 10:24 | PDOC ---
[employer] PROGRESS NOTE Date of Service DOS: DATE: 09/04/21 TIME: 10:13 Chief Complaint Chief Complaint right perineal abscess, homelessness History of Present Illness History of Present Illness 09/04/21 Patient seen and examined. Dressing in place at surgical site. PO day2 following surgical incision and drainage. Chart reviewed Discussed with RN 09/03/21 Patient seen and examined Chart reviewed Discussed with RN Dressing in place at surgical site. Post op day one following surgical incision and drainage. The patient is a pleasant 30-year-old male who states he is on parole and is homeless. Basically presented to [facility] ER with a gluteal cellulitis with some weakness and pain. Patient was transferred the patient for IV antibiotic therapy in consultation with General Surgery. PAST MEDICAL HISTORY: 1. Drug abuse, although he states he has quit. 2. Tobacco abuse. Vitals/I&O Vitals/I&O: Vital Signs Date Time Temp Pulse Resp B/P (MAP) Pulse Ox O2 Delivery O2 Flow Rate FiO2 09/04/21 08:00 Room Air 09/04/21 07:27 98.2 66 20 109/62 (78) 98 98.2 I & O 0 09/03/21 09/03/21 09/04/21 15:00 23:00 07:00 Intake Total 180 ml Balance 180 ml Physical Exam General: Alert, Cooperative Heart: Regular rate Abdomen: Soft Skin: Other (Dressing in place at surgical site) Labs Labs: Laboratory Tests Test 09/04/21 03:40 White Blood Count 10.3 x10^3/uL (4.0-11.0) Red Blood Count 4.19 x10^6/uL (3.50-5.40) Hemoglobin 11.6 g/dL (12.0-15.5) Hematocrit 35.1 % (36.0-47.0) Mean Corpuscular Volume 84 fL (79-100) Mean Corpuscular Hemoglobin 28 pg (25-35) Mean Corpuscular Hemoglobin Concent 33 g/dL (31-37) Red Cell Distribution Width 14.4 % (11.5-14.5) Platelet Count 499 x10^3/uL (140-400) Neutrophils (%) (Auto) 51 % (31-73) Lymphocytes (%) (Auto) 33 % (24-48) Monocytes (%) (Auto) 10 % (0-9) Eosinophils (%) (Auto) 5 % (0-3) Basophils (%) (Auto) 1 % (0-3) Neutrophils # (Auto) 5.3 x10^3/uL (1.8-7.7) Lymphocytes # (Auto) 3.4 x10^3/uL (1.0-4.8) Monocytes # (Auto) 1.1 x10^3/uL (0.0-1.1) Eosinophils # (Auto) 0.5 x10^3/uL (0.0-0.7) Basophils # (Auto) 0.1 x10^3/uL (0.0-0.2) Sodium Level 138 mmol/L (136-145) Potassium Level 4.4 mmol/L (3.5-5.1) Chloride Level 105 mmol/L (98-107) Carbon Dioxide Level 29 mmol/L (21-32) Anion Gap 4 (6-14) Blood Urea Nitrogen 14 mg/dL (7-20) Creatinine 1.0 mg/dL (0.6-1.0) Estimated GFR (Cockcroft-Gault) 64.3 Glucose Level 80 mg/dL (70-99) Calcium Level 8.4 mg/dL (8.5-10.1) Assessment and Plan Assessmemt and Plan right perineal abscess homelessness Plan: Hope to discharge later today For now continue: Consult wound care Antibiotics PRN pain medication PT/OT FULL code Comment Review of Relevant I have reviewed the following items pricila (where applicable) has been applied. Justifications for Admission Other Justification KENAN STEEN III, DO Sep 04, 2021 10:24
[2021-09-04 10:52] VITALS: BP 115/57
[2021-09-04 14:43] VITALS: BP 99/47
--- NOTE | 2021-09-04 15:50 | NUR ---
Discharge Note: BRITTNY ZAYAS Discharge instructions and discharge home medications reviewed with Patient and a copy given. All questions have been answered and understanding verbalized. The following instructions and handouts were given: information about wound care and supplies given, diet, activity, follow up appointments, medications. Discontinued lines and drains: IV line in right forearm removed, catheter tip intact. Patient discharged to home with self care (patient lives in homeless custodial, patient ambulated to discharge vehicle.
== END 2021-09-04 15:45 | disposition home or self-care (01) | DRG 580 ==
LOC: 4 NORTH 16:15
PROVIDERS: ADMIT Internal Medicine; ATTEND Internal Medicine
PROC: 0W9N0ZZ Drainage of Female Perineum, Open Approach (ICD-10-PCS; principal; 2021-09-02 08:01)
DX: L02.215 Cutaneous abscess of perineum (principal); L02.31 Cutaneous abscess of buttock; L03.317 Cellulitis of buttock; F17.200 Nicotine dependence, unspecified, uncomplicated; Z59.00 Homelessness unspecified; Z65.3 Problems related to other legal circumstances; Z82.49 Family history of ischemic heart disease and other diseases of the circulatory system; F19.10 Other psychoactive substance abuse, uncomplicated; Z59.01 Sheltered homelessness
CPT/HCPCS: 36415; 80048; 80053; 80202; 82565; 85007; 85025; 87075; A4223; A4930; A6253; A6402; A6443; J0696; J1100; J1885; J2270; J2405; J2704; J3010; J3370; J7030; J7050; J7120; 97116-GP; G0378